=== PATIENT | female | born 1990 | race Caucasian/White ===

== ENCOUNTER 2016-08-11 20:34 | Emergency (ER) | payer OTHER ==
--- NOTE | ~2016-08-11 | CR181 ---
[facility]. [facility] A Service of [facility] & [facility] RADIOLOGY TEXT RESULTS PATIENT: JOSSELYN CHADWICK LOCATION: SED : [birth year] UNIT #: [id number] AGE: [address]: Lori Chandra MD SEX: F ORDER DR: [id number] [place] [id number] E MR#: [id number] Acc #: [id number] NAME: JOSSELYN CHADWICK. : 1990 SEX: F STUDY DATE/TIME: 08/11/2016 20:35 UNIT: SED ROOM: STUDY DESCRIPTION: CR Lumbar Spine 2 or 3 Views Attending Physician: Lori Chandra M.D. Ordering Physician: Physician Non-Staff Primary Care Physician: Genie Valladares Aprn MEDICAL IMAGING REPORT This report is preliminary unless electronic signature is present. EXAM Lumbar spine, 08/11. INDICATIONS Low back pain since 3:45 this afternoon. No trauma. FINDINGS AP and lateral projections of the lumbar segment show good mineralization of both anterior and posterior elements. They are all anatomically normal without indication of fracture, dislocation, or malignant change of a sclerotic or lytic type. There is no congenital defect noted. The sacroiliac joints are normal. IMPRESSION Normal lumbar spine. Dictated by... Chandler Guzman Jr., M.D. THIS IS AN ELECTRONICALLY VERIFIED REPORT Chandler Guzman Jr., M.D. at 08/12/2016 4:22 PM JOEL/neo TD: 08/12/2016 10:55 JOB #: [id number] MEDICAL IMAGING REPORT Page 1 of 1
--- NOTE | ~2016-08-11 | CR58 ---
[facility]. [facility] A Service of [facility] & [facility] RADIOLOGY TEXT RESULTS PATIENT: JOSSELYN CHADWICK LOCATION: SED : [birth year] UNIT #: [id number] AGE: [address]: Lori Chandra MD SEX: F ORDER DR: [id number] [place] [id number] E MR#: [id number] Acc #: [id number] NAME: JOSSELYN CHADWICK. : 1990 SEX: F STUDY DATE/TIME: 08/11/2016 20:35 UNIT: SED ROOM: STUDY DESCRIPTION: CR Cervical Spine 2 or 3 Views Attending Physician: Lori Chandra M.D. Ordering Physician: Staff Doctor Not On Primary Care Physician: Genie Valladares Aprn MEDICAL IMAGING REPORT This report is preliminary unless electronic signature is present. EXAM Cervical spine, 08/11/2016 INDICATION Neck pain and upper back pain that started at 3:45 this afternoon. No trauma. FINDINGS 3 views of the cervical spine are obtained. No fracture or subluxation is seen. Vertebral body heights and disc spaces are normal. Prevertebral soft tissues are normal. There is reversal of the normal lordosis which could indicate spasm. IMPRESSION Reversal of lordosis which may indicate spasm. Cervical spine is otherwise normal. Dictated by... Chandler Guzman Jr., M.D. THIS IS AN ELECTRONICALLY VERIFIED REPORT Chandler Guzman Jr., M.D. at 08/12/2016 4:22 PM JOEL/lourdes TD: 08/12/2016 10:39 JOB #: [id number] MEDICAL IMAGING REPORT Page 1 of 1
[2016-08-11 20:00] LABS: URINE SOURCE CLEAN CATCH
[2016-08-11 20:03] LABS: URINE APPEARANCE CLEAR; URINE BILIRUBIN NEG (NEG); URINE BLOOD TRACE-INTACT (NEG); URINE COLOR YELLOW; URINE GLUCOSE NEG (NORM); URINE KETONE NEG (NEG); URINE LEUKOCYTE ESTERASE NEG (NEG); URINE NITRATE NEG (NEG); URINE PROTEIN NEG (NEG); URINE UROBILINOGEN 0.2 MG/DL (NORM)
[2016-08-11 20:06] LABS: MICRO INDICATED? YES
[2016-08-11 20:10] LABS: CULTURE INDICATED? NO; URINE BACTERIA NEG (NEG); URINE WBC 0-2 /[HPF] (0-5)
[~2016-08-11 20:34] MED LIST: ACYCLOVIR PO; BENTYL10 MG; DICYCLOMINE HCL20 MG PO; PHENERGAN25 MG PO; TRILEPTAL; VYVANSE30 MG; ZOFRAN PO
== END 2016-08-11 21:59 | disposition home or self-care (01) ==
LOC: SED 20:34
PROVIDERS: Nurse Practitioner
DX: S13.4XXA Sprain of ligaments of cervical spine, initial encounter (principal); V49.00XA Driver injured in collision with unspecified motor vehicles in nontraffic accident, initial encounter
CPT/HCPCS: 72040; 72100; 81003; 84703; 99284

== ENCOUNTER 2016-09-16 08:14 | Emergency (ER) | payer OTHER ==
[2016-09-16 08:35] LABS: INFLUENZA A NEG (NEG); INFLUENZA B NEG (NEG)
== END 2016-09-16 08:56 | disposition home or self-care (01) ==
LOC: SED 08:14
PROVIDERS: Emergency Medicine
DX: J03.00 Acute streptococcal tonsillitis, unspecified (principal)
CPT/HCPCS: 87804; 87880; 99283